=== PATIENT | female | born 2000 | race Caucasian/White ===

== ENCOUNTER → 2022-10-13 09:37 | Outpatient (BNVA) | payer MEDICAID, SELFPAY | PROVIDERS: Visit Provider Nurse Practitioner Family | DX: M25.561 Pain in right knee (principal) | CPT/HCPCS: 73562 ==

== ENCOUNTER 2022-12-13 12:24 | Outpatient (CLI) | payer MEDICAID, SELFPAY ==
--- NOTE | 2022-12-13 13:00 | MR_ITS ---
WS: [id number] MRI RIGHT KNEE NONCONTRAST TECHNIQUE: Axial PD, coronal PD fat sat, coronal PD, sagittal PD, and sagittal PD fat-sat images obta ined. CLINICAL INFORMATION: M25.561 - Pain in right knee COMPARISON: None. FINDINGS: Distal quadriceps and patella tendons are intact. Tiny suprapatellar effusion. Normal ACL and PCL. No rmal medial and lateral meniscus. No acute appearing meniscal tears. 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 No subchondral edema. Normal me dial and lateral patellar retinaculum. Normal medial and lateral collateral ligaments. Normal poplite al fossa. Normal bone marrow signal. IMPRESSION: 1. Normal ACL and PCL. 2. Tiny suprapatellar effusion. 3. 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 4. Normal medial and lateral meniscus. No acute appearing meniscal tears. 5. Normal medial and lateral collateral ligaments. 6. No other acute findings. Outbridge grading: grade II: blister-like swelling/fraying of articular cartilage extending to surfac e
== END 2022-12-13 12:25 | disposition home or self-care (01) ==
PROVIDERS: PCP Nurse Practitioner Family; Visit Provider Nurse Practitioner Family
DX: M25.561 Pain in right knee (principal); M22.41 Chondromalacia patellae, right knee
CPT/HCPCS: 73721

== ENCOUNTER → 2022-12-26 11:24 | Outpatient (BNVA) | payer MEDICAID, SELFPAY | PROVIDERS: PCP Nurse Practitioner Family; Visit Provider Nurse Practitioner Family | DX: J02.9 Acute pharyngitis, unspecified (principal); R05.9 Cough, unspecified; J32.9 Chronic sinusitis, unspecified | CPT/HCPCS: 87071; 87400; 87426; 87880 ==

== ENCOUNTER → 2023-01-27 09:17 | Outpatient (BNVA) | payer MEDICAID, SELFPAY | PROVIDERS: PCP Nurse Practitioner Family; Referring Provider Nurse Practitioner Family; Visit Provider Student in an Organized Health Care Education/Training Program | DX: M25.561 Pain in right knee (principal) | CPT/HCPCS: 99204 ==

== ENCOUNTER 2023-03-01 06:08 | Day surgery (SDC) | payer BC, SELFPAY ==
[2023-03-01] VITALS (13 sets, daily range): BP systolic 101–139; BP diastolic 58–94; PULSE 63–86; RESP 12–24; TEMP 36.2–37.2; O2SAT 94–100; BMI 29.7
[2023-03-01] MEDS: acetaminophen 1,000 MG/100 ML PIGGYBACK 400 MG IV (06:45)
[2023-03-01] MEDS: scopolamine 1.5 Patch 1 PATCH TRANSDERMA (06:46)
[2023-03-01] MEDS: ketorolac 30 mg/mL INJ IVP (06:49)
[2023-03-01] MEDS: sodium chloride 0.9% 1,000 ML 30 ML IV (06:51)
--- NOTE | 2023-03-01 06:58 | ANES.PREANE2 ---
Pre-Anesthetic Assessment Height/Weight: Height 1.63 m Weight 78.471 kg Temp Pulse Resp BP Pulse Ox O2 Del Method 97.1 F L 86 16 139/94 100 Room Air 03/01/23 06:35 03/01/23 06:35 03/01/23 06:35 03/01/23 06:35 03/01/23 06:35 03/01/23 06:35 Operation Date: 03/01/23 07:55 Proposed Procedures p Right Knee Arthroscopy and Diagnostic(Right) - Sagar Montalvo, Familial anesthetic complications: None Was Beta Ramin taken within 24 hours: N/A Was Clonidine taken within 24 hours: N/A Last intake: Intake Last Liquid Date 02/28/23 Last Liquid Time 19:00 Last Solid Date 02/28/23 Last Solid Time 19:00 Social No alcohol and No tobacco Exam alert, oriented x 3, clear to auscultation bilaterally and regular rate & rhythm Airway Mallampati: Class I Dentition: full Anesthetic Plan ASA status: 1 Anesthesia: General Risk of > 500 ml blood loss (7ml/kg in children): No Medications/Allergies Home Medications Medication Instructions Recorded Confirmed Last Taken Type cetirizine 10 mg tablet (Allergy 10 mg PO DAILY 10/13/22 02/28/23 02/28/23 History Relief (cetirizine)) cyclobenzaprine 10 mg tablet 10 mg PO TID PRN muscle spasm #30 10/13/22 02/28/23 Unknown Rx tabs hydroxyzine HCl 25 mg tablet 25 mg PO BEDTIME 10/13/22 02/28/23 02/28/23 History norgestimate 0.25 mg-ethinyl 1 tab PO DAILY 10/13/22 02/28/23 02/28/23 History estradiol 35 mcg tablet (Sprintec (28)) Allergies Allergy/AdvReac Type Severity Reaction Status Date / Time No Known Allergies Allergy Verified 03/01/23 06:26 Current Medications Generic Name Dose Route Start Last Admin Trade Name Freq PRN Reason Stop Dose Admin Sodium Chloride 1,000 mls @ 30 mls/hr 03/01/23 06:30 03/01/23 06:51 Sodium Chloride 0.9% IV 03/02/23 06:29 30 mls/hr .Q24H KAREY Administration PFSH Anesthesia Medical History No pertinent past medical history Surgical History No pertinent past surgical history Social History Smoking and tobacco/nicotine status: never used tobacco/nicotine Second hand smoke exposure: No Alcohol intake: never Substance/Drug Use: never Lives independently: No Household members: family Marital status: Single Current occupational status: employed Current gender identity: Female Special sinan needs: No Data Anesthesia Cardiac Studies: No Data to Display
[2023-03-01 06:59] LABS: OR HCG Qualitative Urine Negative (Negative)
--- NOTE | 2023-03-01 07:56 | W.PM.OPSFHP ---
Same Day Surgery H&P Indication for Procedure/HPI DATE OF PROCEDURE: March 01, 2023 CHIEF COMPLAINT/INDICATIONFOR SURGICAL PROCEDURE: Right knee pain failure of conservative treatment PREOP DIAGNOSIS: Right knee pain, patella chondromalacia, synovitis PLANNED PROCEDURE: Operation Date: 03/01/23 07:55 Proposed Procedures p Right Knee Arthroscopy and Diagnostic(Right) - Sagar Montalvo DO Medications/Allergies* Home Medications Medication Instructions Recorded Confirmed Type cetirizine 10 mg tablet (Allergy 10 mg PO DAILY 10/13/22 02/28/23 History Relief (cetirizine)) hydroxyzine HCl 25 mg tablet 25 mg PO BEDTIME 10/13/22 02/28/23 History norgestimate 0.25 mg-ethinyl 1 tab PO DAILY 10/13/22 02/28/23 History estradiol 35 mcg tablet (Sprintec (28)) Allergies/Adverse Reactions Allergy/AdvReac Type Severity Reaction Status Date / Time No Known Allergies Allergy Verified 03/01/23 06:26 Current Medications: Generic Name Dose Route Start Last Admin Trade Name Freq PRN Reason Stop Dose Admin Sodium Chloride 1,000 mls @ 30 mls/hr 03/01/23 06:30 03/01/23 06:51 Sodium Chloride 0.9% IV 03/02/23 06:29 30 mls/hr .Q24H KAREY Administration Pertinent History/Comorbid Conditions* Medical History (Updated 10/13/22 @ 09:41 by ALANNA Colbert) No pertinent past medical history Surgical History (Updated 10/13/22 @ 09:41 by ALANNA Colbert) No pertinent past surgical history Social History Smoking and tobacco/nicotine status: never used tobacco/nicotine Second hand smoke exposure: No Alcohol intake: never Substance/Drug Use: never Lives independently: No Household members: family Marital status: Single Current occupational status: employed Current gender identity: Female Special sinan needs: No Pertinent Exam Findings alert, oriented x 3, operative site marked and procedure specific exam findings Examination of the right knee: The right knee demonstrates patient has full knee range of motion.? On examination of the patella she has negative apprehension and normal patellar translation with no evidence of patellar instability.? She does have tenderness over the retropatellar space and most predominantly over the medial patellar facet.? She has crepitus noted on knee range of motion as well as pain in the infrapatellar fat pad on knee extension with findings concerning for fat pad impingement.? She has minimal medial and lateral joint line tenderness to palpation negative Mireya's stable varus valgus stress and negative Odilia's.? Palpable joint effusion noted. Recommendations Surgery/Procedure today Other Plans: Plan to proceed with a right knee diagnostic and surgical arthroscopy today. Coding Level of Care Code Acute Code for Chg Fwd Diagnoses
[2023-03-01] MEDS: ceFAZolin 2,000 MG in sodium chloride 0.9% (plus) 50 ML 100 MG IV (09:02)
[2023-03-01] MEDS: lidocaine-epi 2% 20 mL INJ 40 ML INJECTION (09:46)
--- NOTE | 2023-03-01 09:58 | P.BOP_ITS ---
Date of Procedure: 03/01/2023 Surgeon: Sagar Montalvo DO Investigator Utility Bill Complaints(s): Max Montalvo PA-C Procedure(s) performed: Right knee diagnostic and surgical arthroscopy extensive synovectomy (medial lateral patellofemoral compartment) Right knee diagnostic and surgical arthroscopy with patellofemoral compartment chondroplasty Findings of the procedure(s): Patient findings consistent with right knee extensive synovitis with fat pad impingement underwent procedure as planned without any issues or complications Estimated blood loss: 1 mL Specimen(s) removed: None Post-operative diagnosis: Right knee extensive synovitis fat pad impingement
--- NOTE | 2023-03-01 09:59 | P.OP_ITS ---
Operative Report Date of procedure: March 01, 2023 Surgeon: Sagar Montalvo DO Burn Crew Member: Max Montalvo PA-C PA was necessary for assistance on the case with leg positioning and holding as well as assistance with instrumentation assistance with wound closure and dressing application Procedure: Preoperative diagnosis: Right knee pain Right knee fat pad impingement Right knee patella femoral chondromalacia Post-op diagnosis: Right?knee?extensive synovitis Right knee fat pad impingement Right knee patellofemoral chondromalacia Procedure done: Right?knee?diagnostic and surgical arthroscopy with extensive synovectomy of the medial lateral and patellofemoral compartments Right?knee?diagnostic and surgical arthroscopy with patellofemoral compartment chondroplasty Surgeon: Sagar Montalvo DO Estimated blood loss: 1cc Tourniquet: No tourniquet was used IV fluids: See anesthesia record Complications: None Findings: See operative report narrative Condition: stable Disposition: same day Brief History: Patient is a 22-year-old female with right?knee?pain.? Patient has failed conservative treatment who has been worked up for right??knee?pain in the outpatient setting. MRI findings consistent patellofemoral chondromalacia. talked in the office about treatment options patient would like to proceed with a right?knee?diagnostic and surgical arthroscopy. Patient understand the ins and outs of the procedure the risk benefits complication alternatives to treatment options.? Understanding risk of surgery they agree to proceed with surgical intervention.? Patient understand this may not provide patient with complete symptomatic relief of? pain as patient does have some underlying arthritis.? Understanding this and patient agree to proceed with surgical intervention all questions answered. Procedure: Patient seen and evaluated in the preoperative holding area.? Consent was reviewed and signed with patient.? Correct extremity was then marked.? Patient seen evaluated Anesthesia Department once cleared for surgery patient was taken back to the operative suite.? Patient was transported onto the OR table in supine position.? All bony prominences well-padded patient was appropriate secured to the bed.? Once appropriately anesthetized a nonsterile tourniquet was applied to the right thigh.? The right lower extremity was then prepped and draped in standard orthopedic fashion.? Final timeout performed.? Patient received appropriate preoperative antibiotics. Patient received local anesthetic of lidocaine with epinephrine into the joint as well as around the portal sites.? No tourniquet was inflated A standard 2 portal vertical incision diagnostic and surgical arthroscopy of the right?knee?was performed in standard fashion.? Small stab incision made in the inferolateral portal introduced trocar and arthroscope into the suprapatellar pouch.? Suprapatellar pouch was subsequently visualized and found to have significant synovitis but no loose bodies.? Patient had noticeable significant inflamed infrapatellar fat pad and thickening hypertrophic within the patellofemoral compartment.? ?The medial gutter was free of loose bodies I then introduced the arthroscope into the medial compartment.? Within the medial compartment I then established my inferior medial working portal utilizing spinal needle outside in technique.? Once established I then visualized our articular cartilage of the medial compartment with a valgus stress.? Patient was found to have grade 0 chondromalacia throughout the medial compartment.? Next I inspected the meniscus.? With an arthroscopic probe was utilized to visual? all aspects of the meniscus.? Meniscal root was found to be intact.? Meniscus was found to be intact and pristine with no evidence of tear. Next, I then performed a synovectomy of the medial compartment.? Next a introduced the arthroscope to the intercondylar notch.? PCL and ACL were intact. patient had significant thickening of the infrapatellar fat pad spanning into the medial and lateral compartments.? I then performed an extensive synovectomy with the arthroscopic shaver of the patellofemoral medial and l ateral compartments as well as the intercondylar notch. Advance the?scope?into the retrocruciate space and no loose bodies were found. Next I introduced the arthroscope into the lateral compartment the lateral compartment was found to have grade 0 chondromalacia.? Lateral meniscus was found to be intact.? The root was intact.? No evidence of meniscal tear or cartilage defect. This completed my work of the lateral compartment and then performed a synovectomy of the lateral compartment.? Next of the arthroscope was placed into the lateral gutter and this was free of loose bodies.? Finally I reintroduced the arthroscope into the patellofemoral compartment.? The patellofemoral was found to have grade 2 chondromalacia of the patellofemoral compartment. Particularly focal over the medial facet of the patella. Utilized arthroscopic shaver and thermal wand to perform a patella femoral compartment chondroplasty to stable articular tissue. At this point I utilized arthroscopic shaver as well as thermal wand to perform extensive synovectomy of the patellofemoral compartment. This completed my work of the patellofemoral space.? I then switch my portal sites to the medial working portal.? Completed the rest of my synovectomy and the rest of my examination arthroscopy was normal. All fluid was suctioned from the joint.? ?All instruments were withdrawn.? Portal sites were closed with interrupted nylon suture.? portal sites were then covered with with Xeroform 4 x 4's ABD Curlex and John wrap.? Patient was then subsequently awakened from anesthesia and taken to PACU in stable condition. Disposition: Patient taken to PACU in stable condition recovering well.? Will receive appropriate discharge structure as well as pain medication postoperatively as well as? DVT prophylaxis.we will have patient follow-up with us in the office in 2 weeks.? We will weightbearing as tolerated to the right lower extremity.? Patient understands and agrees with current plan.? All questions answered.
--- NOTE | 2023-03-01 10:09 | PM.PACU ---
PACU note Narrative: Patient is a 22-year-old female just underwent a right knee surgical diagnostic arthroscopy. Pt transferred to PACU in stable condition. Dressing is dry. pt is awake and alert. pt can wiggle toes and plantarflex and dorsiflex foot. pt able to perform straight leg raise, Femoral nerve intact. Distal pulses are palpable toes are warm and well-perfused. Cap refill is normal and under 2 seconds. Sensation to foot is intact. Pain is controlled. Exam: awake Disposition: discharged
--- NOTE | 2023-03-01 10:13 | PC.NURSE ---
1013 - lma out per pt - simple mask at [address]
[2023-03-01] MEDS: fentaNYL 50 mcg/mL INJ 2mL IVP (10:27)
[2023-03-01] MEDS: HYDROcodone-acetaminophen 5-325 mg Tablet 1 TAB PO (10:56)
--- NOTE | 2023-03-01 11:45 | ANE.PACU2 ---
Inpatient post-anesthesia follow up: Airway intact: Yes Vital signs: Temperature 97.8 F Pulse Rate 75 Respiratory Rate 16 Blood Pressure 110/70 Pulse Oximetry 95 Oxygen Delivery Me thod Room Air Oxygen Flow Rate 6 Fraction of Inspir ed Oxygen Hydration adequate: Yes Nausea and vomiting: No Pain level: 1 Mental status: Baseline
== END 2023-03-01 11:55 | disposition home or self-care (01) ==
PROVIDERS: PCP Nurse Practitioner Family; Visit Provider Student in an Organized Health Care Education/Training Program
PROC: (CPT 29870; principal; 2023-03-01 07:55)
DX: M22.41 Chondromalacia patellae, right knee (principal); S83.421A Sprain of lateral collateral ligament of right knee, initial encounter; X58.XXXA Exposure to other specified factors, initial encounter; M25.861 Other specified joint disorders, right knee
CPT/HCPCS: 29876; 81025; 84703; J0131; J0690; J1100; J1885; J2250; J2405; J2704; J3010; J7030

== ENCOUNTER 2023-04-05 12:27 | Outpatient (RCR) | payer BC, SELFPAY | END 2023-04-16 23:59 | disposition home or self-care (01) | LOC: TPT 12:27 | PROVIDERS: Visit Provider Physician Assistant | DX: Z98.890 Other specified postprocedural states (principal) | CPT/HCPCS: 97110; 97162 ==

== ENCOUNTER 2023-04-17 06:00 | Outpatient (RCR) | payer MEDICAID, SELFPAY | END 2023-05-17 23:59 | disposition home or self-care (01) | LOC: TPT 06:00 | PROVIDERS: Visit Provider Physician Assistant | DX: Z98.890 Other specified postprocedural states (principal) | CPT/HCPCS: 97110 ==

== ENCOUNTER 2023-05-18 06:00 | Outpatient (RCR) | payer MEDICAID, SELFPAY | END 2023-06-15 23:59 | disposition home or self-care (01) | LOC: TPT 06:00 | PROVIDERS: PCP Nurse Practitioner Family; Visit Provider Physician Assistant | DX: Z98.890 Other specified postprocedural states (principal) | CPT/HCPCS: 97110 ==

== ENCOUNTER → 2023-05-23 14:22 | Outpatient (BNVA) | payer MEDICAID, SELFPAY | PROVIDERS: PCP Nurse Practitioner Family; Visit Provider Student in an Organized Health Care Education/Training Program | DX: Z98.890 Other specified postprocedural states (principal) | CPT/HCPCS: 99213 ==

== ENCOUNTER → 2023-06-21 16:02 | Outpatient (BNVA) | payer MEDICAID, SELFPAY | PROVIDERS: PCP Nurse Practitioner Family; Visit Provider Nurse Practitioner Family | DX: R05.9 Cough, unspecified (principal); R50.9 Fever, unspecified | CPT/HCPCS: 87400; 87426 ==

== ENCOUNTER → 2024-08-28 14:47 | Outpatient (BNVA) | payer BC, SELFPAY | PROVIDERS: PCP Nurse Practitioner Family; Visit Provider Nurse Practitioner Family | DX: G47.00 Insomnia, unspecified (principal); K59.00 Constipation, unspecified | CPT/HCPCS: 80053; 80061; 82306; 82607; 83036; 84443; 85025 ==